=== PATIENT | female | born 1980 | race Caucasian/White ===

== ENCOUNTER → 2017-07-13 | Outpatient (CLI) | payer OTHER ==
[~2017-07-13] VITALS: Ht 170.2 cm; Wt 114.1 kg
[~2017-07-13] MED LIST: BIOCLEANSE PO; DULERA1 ARO IH; HCTZ 25MG TAB25 MG PO; K-DUR20 MEQ PO; PROAIR HFA0.09 MG/AC IH; PROBIOTIC ACID1 EAC3 PO; SINGULAIR 110 MG/TAB PO; SYNTHROID0.05 MG/TA PO; XANAX 0.5MG0.5 MG PO; [UNRECOGNIZED DRUG - OTHER] PO
[2017-07-13 17:18] VITALS: BP 126/70; PULSE 84
== END ==
LOC: LIGHT 10:14
DX: Z98.84 Bariatric surgery status (principal); J45.909 Unspecified asthma, uncomplicated; E03.9 Hypothyroidism, unspecified; Z68.39 Body mass index [BMI] 39.0-39.9, adult; Z71.3 Dietary counseling and surveillance
CPT/HCPCS: G0463

== ENCOUNTER → 2017-08-03 | Outpatient (CLI) | payer OTHER ==
[~2017-08-03] VITALS: Ht 170.2 cm; Wt 115.2 kg
== END ==
LOC: LIGHT 13:54
DX: Z01.89 Encounter for other specified special examinations (principal)

== ENCOUNTER 2017-08-05 12:04 | Inpatient (IN) | payer OTHER ==
[~2017-08-05] VITALS: Ht 170.2 cm; Wt 110.8 kg
[2017-08-19] VITALS (9 sets, daily range): BP systolic 121–140; BP diastolic 56–96; PULSE 85–105; TEMP 98.1–98.9
[2017-08-19 13:19] LABS: CREATININE, serum 0.77 mg/dL (0.52-1.25); POTASSIUM 3.1 mmol/L (3.4-5.0)
[2017-08-19] MEDS ORDERED: MAG-OX 400400 MG/TAB PO (13:30)
[2017-08-20 01:58] VITALS: BP 96/49; PULSE 97; TEMP 98.2
[2017-08-20 06:10] VITALS: BP 106/52; PULSE 100; TEMP 99.8
[2017-08-20 07:40] VITALS: BP 127/62; PULSE 100; TEMP 98.9
[2017-08-20 10:15] VITALS: BP 132/73; PULSE 92; TEMP 98
[2017-08-20 13:10] VITALS: BP 132/73; PULSE 92; TEMP 98
== END 2017-08-20 17:35 | disposition home or self-care (01) | DRG 328 ==
LOC: SURG 08-19 08:00 → INPTSU 08-19 11:37 → JCC 08-19 11:37 → SURG 08-19 13:30 → JCC 08-19 19:41 → SURG 09-02 08:00
PROVIDERS: Nurse Anesthetist, Certified Registered; Surgery
PROC: 0DB64Z3 Excision of Stomach, Percutaneous Endoscopic Approach, Vertical (ICD-10-PCS; principal; 2017-08-19 13:30)
PROC: 0DP64CZ Removal of Extraluminal Device from Stomach, Percutaneous Endoscopic Approach (ICD-10-PCS; 2017-08-19 13:30)
DX: K95.09 Other complications of gastric band procedure (principal); R13.10 Dysphagia, unspecified; E66.01 Morbid (severe) obesity due to excess calories; Z68.39 Body mass index [BMI] 39.0-39.9, adult
CPT/HCPCS: A9284; J0171; J0690; J1100; J1170; J1885; J2250; J2405; J2704; J2765; J3010; J7120

== ENCOUNTER → 2017-08-17 | Outpatient (CLI) | payer OTHER ==
[~2017-08-17] MED LIST changes: +MAG-OX 400400 MG/TAB PO
== END ==
LOC: LIGHT 09:50
DX: Z01.89 Encounter for other specified special examinations (principal)

== ENCOUNTER → 2017-08-24 | Outpatient (CLI) | payer OTHER ==
[~2017-08-24] VITALS: Ht 170.2 cm; Wt 111.4 kg
[2017-08-24 15:41] VITALS: BP 110/74; PULSE 64
== END ==
LOC: LIGHT 12:33
DX: Z98.84 Bariatric surgery status (principal); J45.909 Unspecified asthma, uncomplicated; E03.9 Hypothyroidism, unspecified; Z68.38 Body mass index [BMI] 38.0-38.9, adult; Z71.3 Dietary counseling and surveillance

== ENCOUNTER → 2017-09-21 | Outpatient (CLI) | payer OTHER ==
[~2017-09-21] VITALS: Ht 170.2 cm; Wt 104.6 kg
[~2017-09-21] MED LIST changes: +DAILY MULTIPLE1 T18 PO
[2017-09-21 16:33] VITALS: BP 114/80; PULSE 76
== END ==
LOC: LIGHT 09:01
DX: Z98.84 Bariatric surgery status (principal); J45.909 Unspecified asthma, uncomplicated; E03.9 Hypothyroidism, unspecified; Z68.36 Body mass index [BMI] 36.0-36.9, adult; Z71.3 Dietary counseling and surveillance

== ENCOUNTER → 2017-11-16 | Outpatient (CLI) | payer OTHER ==
[~2017-11-16] VITALS: Ht 170.2 cm; Wt 96.8 kg
[2017-11-16 14:55] VITALS: BP 124/80; PULSE 80
== END ==
LOC: LIGHT 14:43
DX: Z98.84 Bariatric surgery status (principal); J45.909 Unspecified asthma, uncomplicated; E03.9 Hypothyroidism, unspecified; Z68.33 Body mass index [BMI] 33.0-33.9, adult; Z71.3 Dietary counseling and surveillance

== ENCOUNTER → 2018-04-05 | Outpatient (CLI) | payer OTHER ==
[~2018-04-05] VITALS: Ht 170.2 cm; Wt 91.6 kg
[2018-04-05 14:17] VITALS: BP 116/80; PULSE 66
== END ==
LOC: LIGHT 13:21
DX: J45.909 Unspecified asthma, uncomplicated (principal); E03.9 Hypothyroidism, unspecified; Z98.84 Bariatric surgery status; Z68.31 Body mass index [BMI] 31.0-31.9, adult; Z71.3 Dietary counseling and surveillance
CPT/HCPCS: G0463

== ENCOUNTER 2021-07-24 08:31 | Outpatient (CLI) | payer OTHER ==
[2021-07-24] VITALS (7 sets, daily range): BP systolic 128–141; BP diastolic 80–90; PULSE 70–82; TEMP 97.9
[~2021-07-24] VITALS: Ht 170.2 cm; Wt 101.8 kg
[~2021-07-24 08:31] MED LIST changes: +CYMBALTA 30MG30 MG PO
[2021-07-24 10:35] LABS: GLUCOSE,CSF 52 mg/dL (40-70); TOTAL PROTEIN,CSF 32 mg/dL (15-45)
[2021-07-24 11:17] LABS: CSF COLOR COLORLESS
[2021-07-24 11:18] LABS: CSF APPEARANCE CLEAR; CSF MONONUCLEAR 100 % (70-100); CSF POLYMORPHONUCLEAR 0 % (0-6); CSF RBC 8 /mm3 (0-0)
--- NOTE | 2021-07-24 11:21 | NUR ---
Discharge instructions given to pt.Pt verbalizes understanding.Pt escorted out by this nurse.
[2021-07-29 10:52] LABS: ALBUMIN CSF 20.3 mg/dL (<=27.0); ALBUMUN SERUM 4200 mg/dL (())
[2021-07-29 11:18] LABS: CSF IGG/ALBUMIN 0.12 (<=0.21); CSF,IGG 2.4 mg/dL (<=8.1); CSF-IGG INDEX 0.48 (<=0.85); IGG,SERUM 1050 mg/dL (()); IGG/ALBUMIN SERUM 0.25 (<=0.40)
[2021-07-29 13:11] LABS: CSF OLIG BD INTERPRETATION 0 bands (<2); SE OLIGOCLONAL BANDING 3 bands (())
== END 2021-07-24 11:22 ==
LOC: COL.RAD 08:31
PROVIDERS: Psychiatry & Neurology Neurology
DX: G37.9 Demyelinating disease of central nervous system, unspecified (principal)